=== PATIENT | female | born 1990 | race African-American/Black ===

== ENCOUNTER 2017-01-16 16:14 | Emergency (ER) | payer OTHER, MEDICAID ==
[2017-01-16] MEDS ORDERED: NORMAL SALINE 1000 ML 1,000 ML IV ONE (17:44)
[2017-01-16] MEDS ORDERED: KETOROLAC TROMETHAMINE INJ/PF 30 MG/1 ML SDV IV ONE (17:45)
--- NOTE | 2017-01-16 17:47 | ER Document Report ---
ED Medical Screen (RME) - General Chief Complaint: Headache Stated Complaint: HEADACHE,POSSIBLE PALPITATIONS Time Seen by Provider: 01/16/17 17:44 Mode of Arrival: Ambulatory Information source: Patient TRAVEL OUTSIDE OF THE [place] IN LAST 30 DAYS: No - HPI Patient complains to provider of: GALVAN; palpitations Onset: Other - Pt .with h/o migraine GALVAN with onset of typical GALVAN earlier today; also felt her heart beating rapidly-- went to but could not be seen - Related Data Allergies/Adverse Reactions: No Known Allergies Allergy (Verified 01/16/17 16:20) Past Medical History - Past Medical History Cardiac Medical History: Reports: Hx Hypertension Renal/ Medical History: Denies: Hx Peritoneal Dialysis - Immunizations Immunizations up to date: Yes Hx Diphtheria, Pertussis, Tetanus Vaccination: Yes Physical Exam - Vital signs Vitals: Temp Pulse Resp BP Pulse Ox 98.4 F 92 20 152/103 H 99 01/16/17 16:21 01/16/17 16:21 01/16/17 16:21 01/16/17 16:21 01/16/17 16:21 Course - Vital Signs Vital signs: Temp Pulse Resp BP Pulse Ox 98.4 F 92 20 152/103 H 99 01/16/17 16:21 01/16/17 16:21 01/16/17 16:21 01/16/17 16:21 01/16/17 16:21
[2017-01-16 18:32] LABS: ABSOLUTE EOSINOPHILS # (AUTO) 0.4 10^3/uL (0.0-0.6); ABSOLUTE LYMPHOCYTES (AUTO) 2.4 10^3/uL (0.5-4.7); ABSOLUTE MONOCYTES (AUTO) 0.5 10^3/uL (0.1-1.4); ABSOLUTE NEUT (AUTO) 1.9 10^3/uL (1.7-8.2); BASOPHILS % (AUTO) 0.6 % (0-2); EOSINOPHILS % (AUTO) 8.3 % (0-6); HEMOGLOBIN 13.4 g/dL (12.0-15.5); HGB HCT DIFFERENCE 0.2; LYMPHOCYTES % (AUTO) 45.8 % (13-45); MEAN CORPUSCULAR HEMOGLOBIN 27.9 pg (27.0-33.4); MEAN CORPUSCULAR HGB CONC 33.6 g/dL (32.0-36.0); MEAN CORPUSCULAR VOLUME 83 fl (80-97); MONOCYTES % (AUTO) 9.8 % (3-13); RED BLOOD COUNT 4.82 10^6/uL (3.72-5.28); RED CELL DISTRIBUTION WIDTH 12.4 % (11.5-14.0); SEGMENTED NEUTROPHILS % (AUTO) 35.5 % (42-78); WHITE BLOOD COUNT 5.3 10^3/uL (4.0-10.5)
[2017-01-16 18:56] LABS: ANION GAP 11 (5-19); BLOOD UREA NITROGEN 9 mg/dL (7-20); CALCIUM 9.7 mg/dL (8.4-10.2); CARBON DIOXIDE 28 mmol/L (22-30); CHLORIDE 103 mmol/L (98-107); GLUCOSE 67 mg/dL (75-110); POTASSIUM 4.1 mmol/L (3.6-5.0); SODIUM 141.7 mmol/L (137-145)
--- NOTE | 2017-01-16 19:15 | ER Document Report ---
ED General - General Chief Complaint: Headache Stated Complaint: HEADACHE,POSSIBLE PALPITATIONS Time Seen by Provider: 01/16/17 17:44 Mode of Arrival: Ambulatory Notes: Patient is a 26-year-old female who presents with multiple complaints, her primary concern is that she had an episode of palpitations earlier today. Reports that the symptoms have now resolved. Reports a history of similar symptoms in the past but has never had this evaluated by her primary care doctor or wheel polisher. Denies any associated chest pain, syncope or shortness of breath. Patient also reports that she had a headache earlier which is described as a mild, bifrontal headache that was throbbing in nature. States was gradual in onset and similar to prior headaches that she has had. Nothing improves or worsens the headache but notes that it is now resolved after receiving IV Toradol in triage. Patient also notes that she has had chronic fatigue for the past 2-3 months but denies that this is the reason for her visit to the emergency department today. TRAVEL OUTSIDE OF THE [place] IN LAST 30 DAYS: No - Related Data Allergies/Adverse Reactions: No Known Allergies Allergy (Verified 01/16/17 16:20) Past Medical History - General Information source: Patient - Social History Smoking Status: Never Smoker Chew tobacco use (# tins/day): No Frequency of alcohol use: None Drug Abuse: None Lives with: Spouse/Significant other Family History: CAD, Hypertension Patient has suicidal ideation: No Patient has homicidal ideation: No - Past Medical History Cardiac Medical History: Reports: Hx Hypertension Renal/ Medical History: Denies: Hx Peritoneal Dialysis Surgical Hx: Negative - Immunizations Immunizations up to date: Yes Hx Diphtheria, Pertussis, Tetanus Vaccination: Yes Review of Systems - Review of Systems Notes: Constitutional: Negative for fever. HENT: Negative for sore throat. Eyes: Negative for visual changes. Cardiovascular: Negative for chest pain. Positive for palpitations Respiratory: Negative for shortness of breath. Gastrointestinal: Negative for abdominal pain, vomiting or diarrhea. Genitourinary: Negative for dysuria. Musculoskeletal: Negative for back pain. Skin: Negative for rash. Neurological: Positive for headache now resolved, negative for weakness or numbness. 10 point ROS negative except as marked above and in HPI. Physical Exam - Vital signs Vitals: Temp Pulse Resp BP Pulse Ox 98.4 F 92 20 152/103 H 99 01/16/17 16:21 01/16/17 16:21 01/16/17 16:21 01/16/17 16:21 01/16/17 16:21 Interpretation: Hypertensive Notes: PHYSICAL EXAMINATION: GENERAL: Well-appearing, well-nourished and in no acute distress. HEAD: Atraumatic, normocephalic. EYES: Pupils equal round and reactive to light, extraocular movements intact, sclera anicteric, conjunctiva are normal. ENT: nares patent, oropharynx clear without exudates. Moist mucous membranes. NECK: Normal range of motion, supple without lymphadenopathy LUNGS: Breath sounds clear to auscultation bilaterally and equal. No wheezes rales or rhonchi. HEART: Regular rate and rhythm without murmurs ABDOMEN: Soft, nontender, normoactive bowel sounds. No guarding, no rebound. No masses appreciated. EXTREMITIES: Normal range of motion, no pitting or edema. No cyanosis. NEUROLOGICAL: No focal neurological deficits. Moves all extremities spontaneously and on command. PSYCH: Normal mood, normal affect. SKIN: Warm, Dry, normal turgor, no rashes or lesions noted. Course - Re-evaluation Re-evalutation: 01/16/17 19:06 Patient presents with palpitations but is in no acute distress. Vitals within normal limits at time of arrival. EKG unremarkable with a normal sinus rhythm. Laboratories are unremarkable. Patient denies any chest pain, shortness of breath, or vomiting. At this time based on exam and history do not suspect a new onset arrhythmia, ACS, acute pulmonary embolus, aortic dissection. Patient also complained of a headache which is now resolved at time of assessment receiving IV fluids and Toradol. Headache appears to be consistent with tension versus migrainous type headache. Headache was not maximal in onset, patient has no focal neurologic deficits, no nuchal rigidity, vital signs within normal limits, no papilledema, and patient is overall well in appearance. Based on clinical history and examination I do not suspect an acute subarachnoid hemorrhage, dural venous sinus thrombosis, acute meningitis, or intercranial mass. Given my low clinical suspicion for any acute life- threatening etiology, I do not feel advanced neuro imaging or laboratory testing is indicated at this time. At this time will discharge with return precautions and follow-up recommendations. Verbal discharge instructions given a the bedside and opportunity for questions given. Medication warnings reviewed. Patient is in agreement with this plan and has verbalized understanding of return precautions and the need for primary care follow-up in the next 24-72 hours. - Vital Signs Vital signs: Temp Pulse Resp BP Pulse Ox 98.1 F 71 16 132/90 H 100 01/16/17 19:21 01/16/17 19:21 01/16/17 19:21 01/16/17 19:21 01/16/17 19:21 - Laboratory Result Diagrams: 01/16/17 17:55 01/16/17 17:55 Laboratory results interpreted by me: 01/16/17 01/16/17 17:55 17:55 Seg Neutrophils % 35.5 L Lymphocytes % 45.8 H Eosinophils % 8.3 H Glucose 67 L - EKG Interpretation by Me Additional EKG results interpreted by me: 01/16/17 19:06 Normal sinus rhythm. Rate 93. No ST elevations or depressions. QTC is 428. Discharge - Discharge Clinical Impression: Palpitations Headache Qualifiers: Headache type: unspecified Headache chronicity pattern: acute headache Intractability: not intractable Qualified Code(s): R51 - Headache Fatigue Qualifiers: Fatigue type: unspecified Qualified Code(s): R53.83 - Other fatigue Condition: Good Disposition: HOME, SELF-CARE Additional Instructions: Please follow-up with your primary care doctor or a wheel polisher regarding your palpitations. Return if you develop chest pain, shortness of breath, pass out, or have any other symptoms that are worrisome to you.
[2017-01-16 19:22] VITALS: BP 132/90
--- NOTE | 2017-01-16 19:55 | EKG REPORT ---
SEVERITY:- NORMAL ECG - SINUS RHYTHM : Confirmed by: Adama Kim MD 16-Jan-2017 19:54:34
== END 2017-01-16 19:22 | disposition home or self-care (01) ==
LOC: ER 16:14
DX: R00.2 Palpitations (principal); I10 Essential (primary) hypertension; R51 Headache; R53.82 Chronic fatigue, unspecified; Z82.49 Family history of ischemic heart disease and other diseases of the circulatory system
CPT/HCPCS: 93005; 99285; 96361; 96374; 36415; 84703; 85025; 80048; 93010; J1885; J7030

== ENCOUNTER 2017-01-19 18:27 | Emergency (ER) | payer OTHER, MEDICAID ==
--- NOTE | 2017-01-19 19:12 | ER Document Report ---
ED Medical Screen (RME) - General Chief Complaint: Chest Pain Stated Complaint: CHEST PAIN,LEFT ARM TINGLING Time Seen by Provider: 01/19/17 19:06 Information source: Patient Notes: 26-year-old female who presents today with some left chest pain radiating down the left arm. She denies any nausea, vomiting, shortness of breath, calf pain, leg swelling, or fevers. Patient states 1 year ago she was diagnosed with high blood pressure after having a child but has not been on blood pressure medications for the last 9 months. Patient has a family history of a cardiomyopathy. Patient states she did have some palpitations and was seen and evaluated recently here in the emergency department for that complaint. TRAVEL OUTSIDE OF THE [place] IN LAST 30 DAYS: No - Related Data Allergies/Adverse Reactions: No Known Allergies Allergy (Verified 01/19/17 18:31) Past Medical History - Social History Frequency of alcohol use: None Drug Abuse: None - Past Medical History Cardiac Medical History: Reports: Hx Hypertension Renal/ Medical History: Denies: Hx Peritoneal Dialysis - Immunizations Immunizations up to date: Yes Hx Diphtheria, Pertussis, Tetanus Vaccination: Yes Physical Exam - Vital signs Vitals: Temp Pulse Resp BP Pulse Ox 98.8 F 94 14 160/101 H 100 01/19/17 18:31 01/19/17 18:31 01/19/17 18:31 01/19/17 18:31 01/19/17 18:31 Course - Vital Signs Vital signs: Temp Pulse Resp BP Pulse Ox 98.8 F 94 14 160/101 H 100 01/19/17 18:31 01/19/17 18:31 01/19/17 18:31 01/19/17 18:31 01/19/17 18:31
[2017-01-19 19:50] LABS: ABSOLUTE EOSINOPHILS # (AUTO) 0.4 10^3/uL (0.0-0.6); ABSOLUTE LYMPHOCYTES (AUTO) 2.1 10^3/uL (0.5-4.7); ABSOLUTE MONOCYTES (AUTO) 0.4 10^3/uL (0.1-1.4); ABSOLUTE NEUT (AUTO) 2.5 10^3/uL (1.7-8.2); BASOPHILS % (AUTO) 0.4 % (0-2); EOSINOPHILS % (AUTO) 6.9 % (0-6); HEMATOCRIT 39.3 % (36.0-47.0); HEMOGLOBIN 13.1 g/dL (12.0-15.5); LYMPHOCYTES % (AUTO) 38.3 % (13-45); MEAN CORPUSCULAR HEMOGLOBIN 27.6 pg (27.0-33.4); MEAN CORPUSCULAR HGB CONC 33.3 g/dL (32.0-36.0); MEAN CORPUSCULAR VOLUME 83 fl (80-97); MONOCYTES % (AUTO) 7.1 % (3-13); RED BLOOD COUNT 4.74 10^6/uL (3.72-5.28); RED CELL DISTRIBUTION WIDTH 12.4 % (11.5-14.0); SEGMENTED NEUTROPHILS % (AUTO) 47.3 % (42-78); WHITE BLOOD COUNT 5.4 10^3/uL (4.0-10.5)
--- NOTE | 2017-01-19 19:50 | RADIOLOGY REPORT (SQ) ---
EXAM DESCRIPTION: CHEST PA/LAT COMPLETED DATE/TIME: 01/19/2017 7:42 pm REASON FOR STUDY: chest pain COMPARISON: October 2012 EXAM PARAMETERS: NUMBER OF VIEWS: two views TECHNIQUE: Digital Frontal and Lateral radiographic views of the chest acquired. RADIATION DOSE: NA LIMITATIONS: none FINDINGS: LUNGS AND PLEURA: No opacities, masses or pneumothorax. No pleural effusion. MEDIASTINUM AND HILAR STRUCTURES: No masses or contour abnormalities. HEART AND VASCULAR STRUCTURES: Heart normal size. No evidence for failure. BONES: No acute findings. HARDWARE: None in the chest. OTHER: No other significant finding. IMPRESSION: NO SIGNIFICANT RADIOGRAPHIC FINDING IN THE CHEST. TECHNICAL DOCUMENTATION: JOB ID: [id number] [employer]- All Rights Reserved
--- NOTE | 2017-01-19 19:50 | EKG REPORT ---
SEVERITY:- NORMAL ECG - SINUS RHYTHM : Confirmed by: Wayne Leyva 19-Jan-2017 19:50:04
[2017-01-19 20:03] LABS: ANION GAP 13 (5-19); BLOOD UREA NITROGEN 8 mg/dL (7-20); CALCIUM 9.7 mg/dL (8.4-10.2); CARBON DIOXIDE 27 mmol/L (22-30); CHLORIDE 100 mmol/L (98-107); GLUCOSE 87 mg/dL (75-110); POTASSIUM 3.7 mmol/L (3.6-5.0); SODIUM 139.5 mmol/L (137-145)
--- NOTE | 2017-01-19 20:42 | ER Document Report ---
ED Cardiac - General Chief Complaint: Chest Pain Stated Complaint: CHEST PAIN,LEFT ARM TINGLING Time Seen by Provider: 01/19/17 19:06 Mode of Arrival: Ambulatory Information source: Patient TRAVEL OUTSIDE OF THE [place] IN LAST 30 DAYS: No - HPI Patient complains to provider of: Chest pain Was the onset of pain: Sudden Is the pain a: New problem Chest pain location: Substernal Quality of pain: Achy Chest pain radiation location: Left arm Severity now: Mild Severity at worst: Moderate Pain level currently: 1 Chest pain precipitating factors: Mental Exertion/Stress Cardiac risk factors: None Associated symptoms: None Exacerbated by: Denies Relieved by: Nothing Similar symptoms previously: No Recently seen / treated by doctor: Yes Notes: patient is a 26-year-old female with no past medical history who presents to the emergency room complaining of left-sided chest pain with tingling sensation down the left arm that started shortly after having an unpleasant conversation with her on the phone, she denies any shortness of breath, no cough, cold or congestion, she does report some sinus drainage over the past few weeks , no fever or chills, no nausea, vomiting or diarrhea, no history of similar symptoms previously, although patient does report she was seen in the ER recently for palpitations - Related Data Allergies/Adverse Reactions: No Known Allergies Allergy (Verified 01/19/17 18:31) Past Medical History - General Information source: Patient - Social History Smoking Status: Never Smoker Frequency of alcohol use: None Drug Abuse: None Family History: CAD, Hypertension Patient has suicidal ideation: No Patient has homicidal ideation: No - Past Medical History Cardiac Medical History: Reports: Hx Hypertension Renal/ Medical History: Denies: Hx Peritoneal Dialysis - Immunizations Immunizations up to date: Yes Hx Diphtheria, Pertussis, Tetanus Vaccination: Yes Review of Systems - Review of Systems Constitutional: No symptoms reported EENT: No symptoms reported Cardiovascular: See HPI Respiratory: No symptoms reported Gastrointestinal: No symptoms reported Genitourinary: No symptoms reported Female Genitourinary: No symptoms reported Musculoskeletal: No symptoms reported Skin: No symptoms reported Hematologic/Lymphatic: No symptoms reported Neurological/Psychological: No symptoms reported -: Yes All other systems reviewed and negative Physical Exam - Vital signs Vitals: Temp Pulse Resp BP Pulse Ox 98.8 F 94 14 160/101 H 100 01/19/17 18:31 01/19/17 18:31 01/19/17 18:31 01/19/17 18:31 01/19/17 18:31 Interpretation: Normal - General General appearance: Appears well, Alert - HEENT Head: Normocephalic, Atraumatic Eyes: Normal Pupils: PERRL - Respiratory Respiratory status: No respiratory distress Chest status: Tender - Tender to palpate in the left anterior chest wall Breath sounds: Normal Chest palpation: Normal - Cardiovascular Rhythm: Regular Heart sounds: Normal auscultation Murmur: No - Abdominal Inspection: Normal Distension: No distension Bowel sounds: Normal Tenderness: Nontender Organomegaly: No organomegaly - Back Back: Normal, Nontender - Extremities General upper extremity: Normal inspection, Nontender, Normal color, Normal ROM , Normal temperature General lower extremity: Normal inspection, Nontender, Normal color, Normal ROM , Normal temperature, Normal weight bearing. No: Mala's sign - Neurological Neuro grossly intact: Yes Cognition: Normal Orientation: AAOx4 Slim Coma Scale Eye Opening: Spontaneous Slim Coma Scale Verbal: Oriented Slim Coma Scale Motor: Obeys Commands [place] Coma Scale Total: 15 Speech: Normal Motor strength normal: LUE, RUE, LLE, RLE Sensory: Normal - Psychological Associated symptoms: Normal affect, Normal mood - Skin Skin Temperature: Warm Skin Moisture: Dry Skin Color: Normal Course - Re-evaluation Re-evalutation: 01/19/17 22:13 Patient with unremarkable lab and imaging studies, symptoms started after having an unpleasant conversation with her on the phone, symptoms are more likely consistent with anxiety related to this, since patient has no risk factors for heart disease and had an unremarkable workup in the emergency room, she was advised of these findings and advised to follow-up with a primary care provider or return if symptoms worsen, patient acknowledges understanding and agreement with this plan - Vital Signs Vital signs: Temp Pulse Resp BP Pulse Ox 98.8 F 94 26 H 121/102 H 100 01/19/17 18:31 01/19/17 18:31 01/19/17 20:36 01/19/17 20:36 01/19/17 20:36 - Laboratory Result Diagrams: 01/19/17 19:35 01/19/17 19:35 Laboratory results interpreted by me: 01/19/17 19:35 Eosinophils % 6.9 H - Diagnostic Test Radiology reviewed: Image reviewed, Reports reviewed - EKG Interpretation by Me EKG shows normal: Sinus rhythm Rate: Normal Rhythm: NSR Discharge - Discharge Clinical Impression: Chest wall pain Condition: Stable Disposition: HOME, SELF-CARE Instructions: Chest Wall Pain ([facility]), Anxiety ([facility]) Additional Instructions: Follow up with your primary care provider in one to 2 days. Return to the emergency room immediately if symptoms worsen or any additional concerns.
[2017-01-19 21:00] VITALS: BP 121/102
[2017-01-19 21:25] LABS: FREE T3 4.4 pg/mL (2.77-5.27)
[2017-01-19 21:39] LABS: THYROID STIMULATING HORMONE 1.39 uIU/mL (0.47-4.68)
== END 2017-01-19 21:01 | disposition home or self-care (01) ==
LOC: ER 18:27
DX: R07.89 Other chest pain (principal); R20.2 Paresthesia of skin; J34.89 Other specified disorders of nose and nasal sinuses; I10 Essential (primary) hypertension; Z82.49 Family history of ischemic heart disease and other diseases of the circulatory system
CPT/HCPCS: 36415; 71020; 80048; 84439; 84443; 84481; 84484; 85025; 93005; 93010; 99285

== ENCOUNTER 2017-08-09 16:51 | Emergency (ER) | payer MEDICAID, OTHER ==
[2017-08-09 17:39] VITALS: BP 126/79
[2017-08-09] MEDS ORDERED: NORMAL SALINE 1000 ML 2,000 ML IV ONE (18:39)
--- NOTE | 2017-08-09 18:40 | ER Document Report ---
ED GI/ - General Chief Complaint: Nausea/Vomiting Stated Complaint: VOMITING Time Seen by Provider: 08/09/17 18:35 Mode of Arrival: Ambulatory Information source: Patient Notes: 26 yo female sent to ER for IV fluids because they said she was dehydrated. They checked the -FHT and they were OK. Went to be checked there because of nausea, vomiting 2-3 and 2-4 3 times, diarrhea 3 times today. She is lightheaded body feeling weak today. No abd. pain or vaginal bleeding. TRAVEL OUTSIDE OF THE [place] IN LAST 30 DAYS: No - Related Data Allergies/Adverse Reactions: No Known Allergies Allergy (Verified 08/09/17 17:07) Past Medical History - General Information source: Patient - Social History Smoking Status: Never Smoker Frequency of alcohol use: None Drug Abuse: None Lives with: Family Family History: CAD, Hypertension - Medical History Notes: - Past Medical History Cardiac Medical History: Reports: Hx Hypertension Renal/ Medical History: Denies: Hx Peritoneal Dialysis Surgical Hx: Negative - Immunizations Immunizations up to date: Yes Hx Diphtheria, Pertussis, Tetanus Vaccination: Yes Review of Systems - Review of Systems Constitutional: No symptoms reported EENT: No symptoms reported Cardiovascular: No symptoms reported Respiratory: No symptoms reported Gastrointestinal: See HPI Genitourinary: No symptoms reported Female Genitourinary: No symptoms reported Musculoskeletal: No symptoms reported Skin: No symptoms reported Hematologic/Lymphatic: No symptoms reported Neurological/Psychological: See HPI Physical Exam - Vital signs Vitals: Temp Pulse Resp BP Pulse Ox 98.5 F 101 H 20 126/79 H 98 08/09/17 17:38 08/09/17 17:38 08/09/17 17:38 08/09/17 17:38 08/09/17 17:38 Interpretation: Normal - General General appearance: Appears well, Alert In distress: None - HEENT Head: Normocephalic, Atraumatic Eyes: Normal Conjunctiva: Normal Pupils: PERRL Mouth/Lips: Normal Mucous membranes: Normal Neck: Supple. No: Lymphadenopathy - Respiratory Respiratory status: No respiratory distress Chest status: Nontender Breath sounds: Normal Chest palpation: Normal - Cardiovascular Rhythm: Regular Heart sounds: Normal auscultation Murmur: No - Abdominal Inspection: Normal Distension: No distension Bowel sounds: Normal Tenderness: Nontender Organomegaly: Other - fundus just above pubis Notes: FHT 145 at pubis - Back Back: Normal, Nontender. No: CVA tenderness - Extremities General upper extremity: Normal inspection, Nontender, Normal color, Normal ROM , Normal temperature General lower extremity: Normal inspection, Nontender, Normal color, Normal ROM , Normal temperature, Normal weight bearing. No: Mala's sign - Neurological Neuro grossly intact: Yes Cognition: Normal Orientation: AAOx4 Slim Coma Scale Eye Opening: Spontaneous [place] Coma Scale Verbal: Oriented Slim Coma Scale Motor: Obeys Commands [place] Coma Scale Total: 15 Speech: Normal Motor strength normal: LUE, RUE, LLE, RLE Sensory: Normal - Psychological Associated symptoms: Normal affect, Normal mood - Skin Skin Temperature: Warm Skin Moisture: Dry Skin Color: Normal Skin irregularity: negative: Rash Course - Re-evaluation Re-evalutation: 08/09/17 20:48 eating and drinking PO's, IV infusing. - Vital Signs Vital signs: Temp Pulse Resp BP Pulse Ox 98.5 F 101 H 20 126/79 H 98 08/09/17 17:38 08/09/17 17:38 08/09/17 17:38 08/09/17 17:38 08/09/17 17:38 - Laboratory Result Diagrams: 08/09/17 20:05 08/09/17 20:05 Laboratory results interpreted by me: 08/09/17 08/09/17 08/09/17 20:05 20:05 20:05 Hct 34.7 L Sodium 135.3 L Alkaline Phosphatase < 20 L Urine Urobilinogen 4.0 H Ur Leukocyte Esterase TRACE H - Transfer of Care Care transferred to following provider: Lin PALENCIA at 2100 Discharge - Discharge Clinical Impression: 14 weeks gestation of , vomiting diarrhea, Dehydration Condition: Good Disposition: HOME, SELF-CARE Instructions: Dehydration ([facility]), Diarrhea, Nonspecific ([facility]), Intravenous (IV) Fluids ([facility]), Nausea or Vomiting, Nonspecific ([facility]), ([facility]) Additional Instructions: continue to hydrate with fluids drink at least 2 liters of water daily to er if any recurring symptoms, abd pain or vaginal bleeding Forms: Return to Work
[2017-08-09 20:14] LABS: ABSOLUTE EOSINOPHILS # (AUTO) 0.1 10^3/uL (0.0-0.6); ABSOLUTE LYMPHOCYTES (AUTO) 1.8 10^3/uL (0.5-4.7); ABSOLUTE MONOCYTES (AUTO) 0.6 10^3/uL (0.1-1.4); ABSOLUTE NEUT (AUTO) 3.6 10^3/uL (1.7-8.2); BASOPHILS % (AUTO) 0.2 % (0-2); EOSINOPHILS % (AUTO) 1.5 % (0-6); HEMATOCRIT 34.7 % (36.0-47.0); LYMPHOCYTES % (AUTO) 29.4 % (13-45); MEAN CORPUSCULAR HEMOGLOBIN 29.1 pg (27.0-33.4); MEAN CORPUSCULAR HGB CONC 34.7 g/dL (32.0-36.0); MEAN CORPUSCULAR VOLUME 84 fl (80-97); MONOCYTES % (AUTO) 9.9 % (3-13); PLATELET COUNT 235 10^3/uL (150-450); RED BLOOD COUNT 4.14 10^6/uL (3.72-5.28); RED CELL DISTRIBUTION WIDTH 13.7 % (11.5-14.0); TOTAL CELLS COUNTED % (AUTO) 100 %
[2017-08-09 20:15] LABS: APPEARANCE,URINE SLIGHTLY-CLOUDY; BILIRUBIN,URINE NEGATIVE (NEGATIVE); COLOR,URINE YELLOW; GLUCOSE, URINE NEGATIVE (NEGATIVE); KETONES,URINE NEGATIVE (NEGATIVE); LEUKOCYTE ESTERASE,URINE TRACE (NEGATIVE); NITRITE,URINE NEGATIVE (NEGATIVE); PROTEIN,URINE NEGATIVE (NEGATIVE); URINE SPECIFIC GRAVITY 1.031
[2017-08-09 20:43] LABS: ALANINE AMINOTRANSFERASE 17 U/L (9-52); ALBUMIN 4.1 g/dL (3.5-5.0); ANION GAP 8 (5-19); ASPARTATE AMINO TRANSFERASE 22 U/L (14-36); BILIRUBIN,DIRECT 0.4 mg/dL (0.0-0.4); BILIRUBIN,TOTAL 0.4 mg/dL (0.2-1.3); BLOOD UREA NITROGEN 8 mg/dL (7-20); CALCIUM 9.9 mg/dL (8.4-10.2); CARBON DIOXIDE 26 mmol/L (22-30); CHLORIDE 101 mmol/L (98-107); GLUCOSE 81 mg/dL (75-110); POTASSIUM 3.7 mmol/L (3.6-5.0); SODIUM 135.3 mmol/L (137-145); TOTAL PROTEIN 6.9 g/dL (6.3-8.2)
[2017-08-09 20:46] LABS: ALKALINE PHOSPHATASE < 20 U/L (38-126)
== END 2017-08-09 21:55 | disposition home or self-care (01) ==
LOC: ER 16:51
DX: O21.9 Vomiting of pregnancy, unspecified (principal); R19.7 Diarrhea, unspecified; E86.0 Dehydration; Z3A.14 14 weeks gestation of pregnancy
CPT/HCPCS: 99284; 96360; 36415; 85025; 80053; 81001; J7030

== ENCOUNTER → 2018-01-03 | Outpatient (CLI) | payer MEDICAID ==
--- NOTE | 2018-01-04 11:20 | Non Stress Test Report ---
Non Stress Test Datetime Report Generated by CPN: 01/04/2018 11:19 INDICATION Indication for Study: Ordered by Provider Indication for Study (NST) Other: repeat from the office VITAL SIGNS Temperature - NST: 98.0 Pulse - NST: 78 RESP - NST: 14 NBPSYS NST: 111 NBPDIA NST: 65 MONITORING Monitor Explained: Monitor Explained; Test Explained; Patient Verbalized Understanding Time on Monitor: 01/03/2018 17:00 Time off Monitor: 01/03/2018 17:20 NST Duration: 20 NST INTERVENTIONS NST Interventions: Reposition Patient Physician Notified NST: C Johnston CNM BABY A: [id number] BABY A Movement : Present Contraction Frequency : 0 FHR Baseline : 125 Accelerations : 15X15 Decelerations : None Variability : Moderate 6-25bpm NST Review: Meets Criteria for Reactive NST NST Review and Verified By : Sarah Ingram RN NST Results: Reactive NST REPORT Report Trigger: Send Report
== END ==
LOC: LC 16:37
PROVIDERS: ATTEND Student in an Organized Health Care Education/Training Program
PROC: 4A1HXCZ Monitoring of Products of Conception, Cardiac Rate, External Approach (ICD-10-PCS; principal; 2018-01-03)
DX: Z34.93 Encounter for supervision of normal pregnancy, unspecified, third trimester (principal)
CPT/HCPCS: 59025

== ENCOUNTER 2018-01-17 18:27 | Inpatient (IN) | payer MEDICAID ==
[2018-01-17 18:49] LABS: APPEARANCE,URINE SLIGHTLY-CLOUDY; BILIRUBIN,URINE NEGATIVE (NEGATIVE); COLOR,URINE YELLOW; GLUCOSE, URINE 50 mg/dL (NEGATIVE); KETONES,URINE NEGATIVE (NEGATIVE); LEUKOCYTE ESTERASE,URINE NEGATIVE (NEGATIVE); NITRITE,URINE NEGATIVE (NEGATIVE); PROTEIN,URINE NEGATIVE (NEGATIVE); URINE SPECIFIC GRAVITY 1.014; UROBILINOGEN,URINE NEGATIVE mg/dL (<2.0)
[2018-01-17 19:03] LABS: ABSOLUTE BASOPHILS # (AUTO) 0.1 10^3/uL (0.0-0.2); ABSOLUTE EOSINOPHILS # (AUTO) 0.1 10^3/uL (0.0-0.6); ABSOLUTE LYMPHOCYTES (AUTO) 1.9 10^3/uL (0.5-4.7); ABSOLUTE MONOCYTES (AUTO) 0.9 10^3/uL (0.1-1.4); ABSOLUTE NEUT (AUTO) 5.9 10^3/uL (1.7-8.2); BASOPHILS % (AUTO) 0.7 % (0-2); EOSINOPHILS % (AUTO) 1.6 % (0-6); HEMATOCRIT 27.7 % (36.0-47.0); HEMOGLOBIN 9.3 g/dL (12.0-15.5); LYMPHOCYTES % (AUTO) 21.2 % (13-45); MEAN CORPUSCULAR HGB CONC 33.7 g/dL (32.0-36.0); MEAN CORPUSCULAR VOLUME 80 fl (80-97); MONOCYTES % (AUTO) 9.6 % (3-13); PLATELET COUNT 194 10^3/uL (150-450); RED BLOOD COUNT 3.47 10^6/uL (3.72-5.28); RED CELL DISTRIBUTION WIDTH 13.4 % (11.5-14.0); SEGMENTED NEUTROPHILS % (AUTO) 66.9 % (42-78); TOTAL CELLS COUNTED % (AUTO) 100 %; WHITE BLOOD COUNT 8.9 10^3/uL (4.0-10.5)
[2018-01-17 19:05] LABS: URINE AMPHETAMINES SCREEN NEGATIVE; URINE BARBITURATES SCREEN NEGATIVE; URINE BENZODIAZEPINES SCREEN NEGATIVE; URINE COCAINE SCREEN NEGATIVE; URINE MARIJUANA (THC) SCREEN NEGATIVE; URINE METHADONE SCREEN NEGATIVE; URINE PHENCYCLIDINE SCREEN NEGATIVE
[2018-01-17] MEDS ORDERED: OXYTOCIN/NORMAL SALINE 20 UNIT/1,000 ML RTUINJ IV PRN (19:48)
[2018-01-17] MEDS ORDERED: PENICILLIN G POTASSIUM 5,000,000 UNIT in DEXTROSE 5%-WATER 100 ML IV ONE (19:50)
[2018-01-17] MEDS ORDERED: RINGERS SOLUTION,LACTATED 1,000 ML IV PRN (19:50)
[2018-01-17] MEDS ORDERED: OXYTOCIN/NORMAL SALINE 20 UNIT/1,000 ML RTUINJ ONE (19:54)
[2018-01-17] MEDS ORDERED: PENICILLIN G-K 5 MILLION UNIT VIAL ONE (19:54)
--- NOTE | 2018-01-17 20:29 | Admission Physical ---
Datetime Report Generated by CPN: 01/17/2018 20:29 CURRENT ADMISSION Chief Complaint: Scheduled Induction of Labor Indication for Induction: Gestational HTN; PreEclampsia; Maternal Diabetes Admit Impression : Term, Intrauterine ; No Active Labor; Induction of Labor Admit Plan: Admit to Unit; Initiate Labor Induction Protocol ALLERGIES Medication Allergies: No Medication Allergies: No Known Allergies (08/09/2017) Latex: No Latex Allergies OBSTETRICAL HISTORY EDC: 02/06/2018 00:00 : 4 Para: 2 Term: 2 : 0 SAB: 0 IAB: 1 Ectopic: 0 Livin Cesareans: 0 VBACs: 0 Multiple Births: 0 Gestational Diabetes: Yes Rh Sensitization: No Incompetent Cervix: No SAAD: No Infertility: No ART Treatment: No Uterine Anomaly: No IUGR: No Hx Previous C/S: No Macrosomia: No Hx Loss/Stillborn: No PIH: No Hx : No Placenta Previa/Abruption: No Depression/PP Depression: No PTL/PROM: No Post Hemorrhage: No Obstetrical History Comments: H/O GDM- METFORMIN H/O GHTN SEE RECORDS Alcohol: Yes Marijuana : No Cocaine: No Other Illicit Drugs: No Cigarettes: Never Smoker. [id number] MEDICAL HISTORY Diabetes: Yes Diabetes Type: Gestational Diabetes Blood Transfusion: No Pulmonary Disease (Asthma, TB): No Breast Disease: No Hypertension: No Surgical Oncologist Surgery: No Heart Disease: No Hosp/Surgery: Yes Autoimmune Disorder: No Anesthetic Complications: No Kidney Disease: No Abnormal Pap Smear: No Neuro/Epilepsy: No Psychiatric Disorders: No Other Medical Diseases: No Hepatitis/Liver Disease: No Significant Family History: No Varicosities/Phlebitis: No Trauma/Violence : No Thyroid Dysfunction: No Medical History Comments: childbirth anemia INFECTIOUS HISTORY Gonorrhea: No Genital Herpes: No Chlamydia: No Tuberculosis: No Syphilis: No Hepatitis: No HIV/AIDS Exposure: No Rash or Viral Illness: No HPV: No PHYSICAL EXAM General: Normal HEENT: Normal Neurologic: Normal Thyroid: Normal Heart: Normal Lungs: Normal Breast: Normal Back: Normal Abdomen: Normal Genitourinary Exam: Normal Extremities: Normal DTRs: Normal Pelvic Type: Adequate Vital Signs: Reviewed VAGINAL EXAM Dilatation: 2 Effacement: 60 Station: -2 MEMBRANES Pooling: Negative Membranes: Intact FETUS A EGA: 37.1 Monitoring: External US FHR- Baseline: 130 Variability: Moderate 6-25bpm Accelerations: 15X15 Decelerations: None FHR Category: Category I Estimated Weight (gm): 3400 Presentation: Vertex PLANS FOR LABOR AND DELIVERY Pain Management: Natural Feeding Preference: Breast Benefit of Breast Feed Discussed: Yes Circumcision: Yes INFORMED CONSENT Signature: with User ID: [email or web address]
[2018-01-18] MEDS ORDERED: PENICILLIN G-K 5 MILLION UNIT VIAL ONE ×4 (00:10→12:51)
[2018-01-18] MEDS: PENICILLIN G POTASSIUM 2,500,000 UNIT in DEXTROSE 5%-WATER 50 ML IV SCH ×6 (00:19→21:26)
[2018-01-18 02:29] LABS: ANION GAP 11 (5-19)
[2018-01-18 02:30] LABS: ALANINE AMINOTRANSFERASE 17 U/L (9-52); ALBUMIN 3.3 g/dL (3.5-5.0); ALKALINE PHOSPHATASE 51 U/L (38-126); ASPARTATE AMINO TRANSFERASE 19 U/L (14-36); BILIRUBIN,DIRECT 0.2 mg/dL (0.0-0.4); BILIRUBIN,TOTAL 0.3 mg/dL (0.2-1.3); BLOOD UREA NITROGEN 8 mg/dL (7-20); CALCIUM 9.8 mg/dL (8.4-10.2); CARBON DIOXIDE 21 mmol/L (22-30); CHLORIDE 109 mmol/L (98-107); GLUCOSE 99 mg/dL (75-110); POTASSIUM 3.9 mmol/L (3.6-5.0); SODIUM 140.6 mmol/L (137-145); TOTAL PROTEIN 6.2 g/dL (6.3-8.2); URIC ACID 2.9 mg/dL (2.5-6.2)
[2018-01-18] MEDS ORDERED: ACETAMINOPHEN 325 MG TABLET ONE (04:44)
[2018-01-18] MEDS ORDERED: MISOPROSTOL 0.2 MG TABLET ONE (06:34)
[2018-01-18] MEDS ORDERED: LIDOCAINE 1% INJ-PF (10 MG/ML) 30 ML SDV ONE (06:34)
[2018-01-18] MEDS ORDERED: OXYTOCIN/NORMAL SALINE 20 UNIT/1,000 ML RTUINJ ONE (06:34)
--- NOTE | 2018-01-18 13:30 | L&D Progress Notes ---
PROGRESS NOTES Datetime Report Generated by CPN: 01/18/2018 13:30 PROGRESS NOTE Impression: Reassuring Heart Rate Procedures: Artificial ROM; Sterile Vag Exam Plan: Continue Present Management Vital Signs : Reviewed; Within Normal Limits Comment: SVE w AROM clear fluid. Patient coping well. Anticipate stronger labor now. VAGINAL EXAM Dilatation: 3 Dilatation: 2 Effacement: 80 Effacement: 60 Station: -1 Station: -2 MEMBRANES Pooling: Negative Membranes: Ruptured Membranes: Intact Amniotic Fluid Color: Clear FETUS A FHR - Baseline: 130 Monitoring: External US Variability: Moderate 6-25bpm Accelerations: 15X15 FHR Category: Category I : 37.2 : 37.1 Estimated Weight (gm): 3400 Presentation: Vertex SIGNATURE SIGNATURE: ,[id number];,[id number];,[id number] SIGNATURE: ,[id number];,[id number] SIGNATURE: [id number] Assignment: Radha Mcdonough MD Signature: with User ID: [email or web address] : with User ID: [email or web address] : I personally evaluated and examined the patient in conjunction with the MLP and agree with the assessment, treatment plan and disposition.
[2018-01-18] MEDS ORDERED: GLYCERIN/WITCH HAZEL LEAF 1 EACH MED..PAD TP PRN (14:50)
[2018-01-18] MEDS ORDERED: MAGNESIUM HYDROXIDE SUSP 30 ML UDCUP PO PRN (14:50)
[2018-01-18] MEDS ORDERED: PROMETHAZINE HCL 25 MG SUPP.RECT PR PRN (14:50)
[2018-01-18] MEDS ORDERED: ACETAMINOPHEN 650 MG SUPP.RECT PR PRN (14:50)
[2018-01-18] MEDS ORDERED: ZOLPIDEM TARTRATE 5 MG TABLET PO PRN (14:50)
[2018-01-18] MEDS ORDERED: DIPH/PERTUSS(ACELL)/TETANUS VAC/PF 0.5 ML SYR (>=10YO) IM PRN (14:50)
[2018-01-18] MEDS ORDERED: DIBUCAINE 1% OINTMENT 28 GM TP PRN (14:50)
[2018-01-18] MEDS ORDERED: PROMETHAZINE HCL INJ 25 MG/1 ML VIAL IV PRN (14:50)
[2018-01-18] MEDS ORDERED: BENZOCAINE/MENTHOL AEROSOL SPRAY 56 ML TOP PRN (14:50)
[2018-01-18] MEDS ORDERED: DIPHENHYDRAMINE HCL 25 MG CAPSULE PO PRN (14:50)
[2018-01-18] MEDS ORDERED: MEASLES,MUMPS&RUBELLA VACC/PF 0.5 ML VIAL SUBCUT PRN (14:50)
[2018-01-18] MEDS ORDERED: NA PHOS,M-B/NA PHOS,DI-BA (ADULT) 133 ML ENEMA PR PRN (14:50)
[2018-01-18] MEDS ORDERED: ACETAMINOPHEN WITH CODEINE #3 TABLET PO PRN ×2 (14:50)
[2018-01-18] MEDS ORDERED: PROMETHAZINE HCL 25 MG TABLET PO PRN (14:50)
[2018-01-18] MEDS ORDERED: OXYTOCIN/NORMAL SALINE 20 UNIT/1,000 ML RTUINJ IV PRN (14:50)
[2018-01-18] MEDS ORDERED: PSEUDOEPHEDRINE HCL 30 MG TABLET PO PRN (14:50)
--- NOTE | 2018-01-18 16:53 | Delivery Summary ---
Del Sum A-C Datetime Report Generated by CPN: 01/18/2018 16:53 DELIVERY PERSONNEL DELIVERY PERSONNEL: [id number] Delivery Doctor:: Tania Hare CNM Labor and Delivery Nurse:: Lissette CASTRO RNmanager research and development Nurse:: Marcy Keyes RN Nursery Nurse:: OBIE CHAUDHARI [place]eller/PHYSICAL THERAPY AID: Jayne Smart CNA II MATERNAL INFORMATION Delivery Anesthesia: None Medications After Delivery: Pitocin Bolus-Please Comment; Pitocin Drip 20 Units/1000ml NSS Estimated Blood Loss (ml): 175 Maternal Complications: None Provider Comments: Called to room 6-vertex delivered. Patient in good control. FRED position. Nuchal cord x1-reduced. Compound right hand-reduced. Shoulders and body delivered without difficulty at 1418. 3 vessel cord. Apgars 9-9. Spontaneous respirations and cry. Cord clamped x2, after 2 min delay, then cut by FOB. Placenta delivered at 1424, Sun, appears intact. Perineum intact. Hemostasis achieved. Patient tolerated procedure well. LABOR SUMMARY EDC: 02/06/2018 00:00 No. Babies in Womb: 1 Attempted: No Labor Anesthesia: None LABOR INFORMATION Reason for Induction: Chronic Primary/Essential HTN; Gestational Hypertension; Pre-Eclampsia; Maternal Diabetes Onset of Labor: 01/18/2018 13:23 Complete Dilatation: 01/18/2018 14:17 Oxytocin: Induction Group B Beta Strep: POSITIVE Antibiotics # of Doses: 4 Antibiotics Time of Last Dose: 1251 Name of Antibiotic Given: Pennicillin Steroids Given: None Reason Steroids Not Administered: Not Applicable MEMBRANES Membranes Rupture Method: Artificial Rupture of Membranes: 01/18/2018 13:23 Length of Rupture (hr): 0.92 Amniotic Fluid Color: Clear Amniotic Fluid Amount: Moderate Amniotic Fluid Odor: Normal STAGES OF LABOR Stage 1 hr: 0 Stage 1 min: 54 Stage 2 hr: 0 Stage 2 min: 1 Stage 3 hr: 0 Stage 3 min: 6 Total Time in Labor hr: 1 Total Time in Labor min: 1 VAGINAL DELIVERY Episiotomy: None Laceration #1: None Laceration Extension #1: N/A Laceration Repair: Not Applicable Sponge Count Correct: N/A Sharps Count Correct: Yes CSECTION DELIVERY Primary Indication: N/A Secondary Indication: N/A CSection Incidence: N/A Labor: N/A CSection Incision: N/A BABY A INFORMATION Delivery Date/Time: 01/18/2018 14:18 Method of Delivery: Vaginal Born in Route : No : N/A Forceps: N/A Vacuum Extraction: N/A Shoulder Dystocia : No PRESENTATION/POSITION BABY A Presentation: Cephalic Cephalic Presentation: Vertex Vertex Position: LEFT Occipital Anterior WITH LT COMPOUND POSTERIOR HAND Breech Presentation: N/A PLACENTA INFORMATION BABY A Placenta Delivery Time : 01/18/2018 14:24 Placenta Method of Delivery: Spontaneous Placenta Status: Delivered SCORES BABY A Heart Rate 1 min: >100 bpm Resp Effort 1 min: Good Cry Reflex Irritability 1 min: Cough or Sneeze or Pulls Away Muscle Tone 1 min: Active Motion Color 1 min: Body [place], Extremities Blue Resuscitation Effort 1 min: Tactile Stimulation SCORE 1 MIN: 9 Heart Rate 5 min: >100 bpm Resp Effort 5 min: Good Cry Reflex Irritability 5 min: Cough or Sneeze or Pulls Away Muscle Tone 5 min: Active Motion Color 5 min: Body [place], Extremities Blue Resuscitation Effort 5 min: N/A SCORE 5 MIN: 9 INFANT INFORMATION BABY A Gestational Age at Delivery: 37.2 Gestational Status: Early Term- 37- 38.6 Weeks Infant Outcome : Liveborn Condition : Stable Infant Sex: Male IDENTIFICATION BABY A Verification Date/Time: 01/18/2018 14:38 ID Band Number: [id number] Mother's Name Verified: Yes Infant RN Verifying : BL MIKO, RN Additional Verifying Personnel: Patricia MARTINEZ, RN CORD INFORMATION BABY A No. Cord Vessels: 3 Nuchal Cord : Around Neck x1, Loose Nuchal Cord- Other: compound right hand Cord Blood Taken: Yes-For Storage (Mom's Blood type +) Suction: Mouth; Nose ASSESSMENT BABY A Skin to Skin: Yes BABY B INFORMATION : N/A SIGNATURES Assignment: Radha Mcdonough MD Signature: with User ID: [email or web address] : with User ID: [email or web address] : Ariel personally evaluated and examined the patient in conjunction with the P and agree with the assessment, treatment plan and disposition.
[2018-01-18 17:24] LABS: CHLAM PCR NOT DETECTED (NOT DETECT); GON PCR NOT DETECTED (NOT DETECT)
[2018-01-18] MEDS: DOCUSATE SODIUM 100 MG CAPSULE PO SCH (18:42)
[2018-01-18] MEDS: FERROUS SULFATE 325 MG TABLET PO SCH (18:42)
[2018-01-18] MEDS: FAMOTIDINE 20 MG TABLET PO SCH (22:01)
[2018-01-18] MEDS: IBUPROFEN 800 MG TABLET PO SCH (22:01)
[2018-01-19] MEDS: PENICILLIN G POTASSIUM 2,500,000 UNIT in DEXTROSE 5%-WATER 50 ML IV SCH ×2 (03:14→06:56)
[2018-01-19] MEDS: IBUPROFEN 800 MG TABLET PO SCH ×3 (05:48→22:04)
[2018-01-19 07:56] LABS: HEMOGLOBIN 8.9 g/dL (12.0-15.5); MEAN CORPUSCULAR HEMOGLOBIN 27.1 pg (27.0-33.4); MEAN CORPUSCULAR HGB CONC 34.2 g/dL (32.0-36.0); MEAN CORPUSCULAR VOLUME 79 fl (80-97); PLATELET COUNT 159 10^3/uL (150-450); RED BLOOD COUNT 3.28 10^6/uL (3.72-5.28); WHITE BLOOD COUNT 9.3 10^3/uL (4.0-10.5)
--- NOTE | 2018-01-19 09:58 | PDOC PROGRESS REPORT ---
Subjective-OB Progress Note for:: 01/19/18 Subjective: tolerating diet, well, pain controlled with current meds, bleeding slowing Physical Exam (OB) Vital Signs: Temp Pulse Resp BP Pulse Ox 98.0 F 75 17 140/94 H 98 01/19/18 08:30 01/19/18 08:30 01/19/18 08:30 01/19/18 08:30 01/19/18 08:30 Intake & Output 01/18/18 01/19/18 01/20/18 06:59 06:59 06:59 Weight 89 kg - Abdomen Description: Soft, Round Hernia Present: No Fundal Description: Firm, Midline Fundal Height: u/u - u/2 - Abdominal Tenderness: Nontender - Extremities Lower extremities: Mala's sign - neg Calf: Normal, Nontender Objective-Diagnostic Laboratory: 01/19/18 07:05 01/17/18 18:52 01/19/18 07:05 WBC 9.3 RBC 3.28 L Hgb 8.9 L Hct 26.0 L MCV 79 L MCH 27.1 MCHC 34.2 RDW 14.0 Plt Count 159 Assessment and Plan(PN) - Assessment and Plan (1) Carrier of group B Streptococcus Is this a current diagnosis for this admission?: Yes (2) Normal vaginal delivery Is this a current diagnosis for this admission?: Yes - Time Spent with Patient Time with patient: Less than 15 minutes Medications reviewed and adjusted accordingly: Yes - Disposition Anticipated Discharge: Home Within: within 24 hours
[2018-01-19] MEDS: PRENATAL VITAMIN W DHA CAPSULE PO SCH (10:11)
[2018-01-19] MEDS: FAMOTIDINE 20 MG TABLET PO SCH ×2 (10:12→22:06)
[2018-01-19] MEDS: FERROUS SULFATE 325 MG TABLET PO SCH ×2 (10:12→18:01)
[2018-01-19] MEDS: DOCUSATE SODIUM 100 MG CAPSULE PO SCH ×2 (10:13→18:00)
[2018-01-19] MEDS: SENNOSIDES/DOCUSATE 8.6-50 MG 1 EACH TABLET PO SCH (10:14)
[2018-01-20] MEDS: IBUPROFEN 800 MG TABLET PO SCH ×2 (05:02→13:20)
[2018-01-20] MEDS: FAMOTIDINE 20 MG TABLET PO SCH (09:03)
[2018-01-20] MEDS: FERROUS SULFATE 325 MG TABLET PO SCH (09:03)
[2018-01-20] MEDS: SENNOSIDES/DOCUSATE 8.6-50 MG 1 EACH TABLET PO SCH (09:03)
[2018-01-20] MEDS: PRENATAL VITAMIN W DHA CAPSULE PO SCH (09:03)
[2018-01-20] MEDS: DOCUSATE SODIUM 100 MG CAPSULE PO SCH (09:03)
--- NOTE | 2018-01-20 10:35 | PDOC DISCHARGE SUMMARY ---
Final Diagnosis Discharge Date: 01/20/18 - Final Diagnosis (1) Normal vaginal delivery Is this a current diagnosis for this admission?: Yes (2) History of sciatica Is this a current diagnosis for this admission?: Yes Discharge Data - Discharge Medication Home Medications: Metformin HCl [Metformin HCl ER] 500 mg PO DAILY 01/18/18 Reason(s) for Admission: Induction of Labor Procedures: NST, Ultrasound Intrapartum Procedure(s): Spontaneous Vaginal Delivery - Diagnosis Test Laboratory: Temp Pulse Resp BP Pulse Ox 98.2 F 84 10 L 140/94 H 98 01/20/18 07:53 01/20/18 07:53 01/20/18 07:53 01/20/18 07:53 01/20/18 07:53 01/17/18 01/17/18 01/19/18 18:41 18:52 07:05 RBC 3.47 L 3.28 L Hgb 9.3 L 8.9 L Hct 27.7 L 26.0 L Urine Opiates Screen NEGATIVE - Discharge information/Instructions Discharge Activity: Activity As Tolerated Discharge Diet: Regular Disposition: HOME, SELF-CARE Follow up with: [facility] in: 1
[2018-01-20 12:03] VITALS: BP 140/94
== END 2018-01-20 13:23 | disposition home or self-care (01) | DRG 775 ==
LOC: LR 18:27 → 2S 01-18 17:15
PROVIDERS: ADMIT Obstetrics & Gynecology; ATTEND Obstetrics & Gynecology
PROC: 10E0XZZ Delivery of Products of Conception, External Approach (ICD-10-PCS; principal; 2018-01-18)
DX: O13.4 Gestational [pregnancy-induced] hypertension without significant proteinuria, complicating childbirth (principal); O24.425 Gestational diabetes mellitus in childbirth, controlled by oral hypoglycemic drugs; O69.81X0 Labor and delivery complicated by cord around neck, without compression, not applicable or unspecified; O32.2XX0 Maternal care for transverse and oblique lie, not applicable or unspecified; O99.824 Streptococcus B carrier state complicating childbirth; O14.94 Unspecified pre-eclampsia, complicating childbirth; Z3A.37 37 weeks gestation of pregnancy; Z37.0 Single live birth
CPT/HCPCS: 36415; 80053; 80307; 81005; 82962; 83615; 84550; 85025; 85027; 86592; 86850; 86900; 86901; 87491; 87591; 88307; 94760; J2540; J2590; J3490

== ENCOUNTER 2019-03-21 11:32 | Emergency (ER) | payer SELFPAY ==
--- NOTE | 2019-03-21 11:58 | ER Document Report ---
ED Medical Screen (RME) - General Chief Complaint: Loose Stools Stated Complaint: DIAHERRA/ABDOMINAL PAIN Time Seen by Provider: 03/21/19 11:48 Primary Care Provider: PILLO STOUT MD [Primary Care Provider] - Follow up as needed Mode of Arrival: Ambulatory Information source: Patient Notes: 28-year-old female presents today with complaints of abdominal discomfort and diarrhea for the past 2 weeks. She reports she will eat something or not and will have diarrhea 2-3 times a day. Denies recent antibiotic use. Denies recent trip. Denies history of IBS or diverticulitis. Reports no other family member ill. Reports grandfather with history of colon cancer. Patient reports she noted blood in her stool on her stool and when she wiped today. I have greeted and performed a rapid initial assessment of this patient. A comprehensive ED assessment and evaluation of the patient, analysis of test results and completion of the medical decision making process will be conducted by additional ED providers. Dictation of this chart was performed using voice recognition software; therefore, there may be some unintended grammatical errors. TRAVEL OUTSIDE OF THE [place] IN LAST 30 DAYS: No - Related Data Allergies/Adverse Reactions: No Known Allergies Allergy (Verified 03/21/19 11:34) Past Medical History - Past Medical History Cardiac Medical History: Reports: Hx Hypertension Renal/ Medical History: Denies: Hx Peritoneal Dialysis - Immunizations Immunizations up to date: Yes Hx Diphtheria, Pertussis, Tetanus Vaccination: Yes Physical Exam - Vital signs Vitals: Temp Pulse Resp BP Pulse Ox 98.6 F 99 18 151/98 H 99 03/21/19 11:41 03/21/19 11:41 03/21/19 11:41 03/21/19 11:41 03/21/19 11:41 Course - Vital Signs Vital signs: Temp Pulse Resp BP Pulse Ox 98.6 F 99 18 151/98 H 99 03/21/19 11:41 03/21/19 11:41 03/21/19 11:41 03/21/19 11:41 03/21/19 11:41 Doctor's Discharge - Discharge Referrals: PILLO STOUT MD [Primary Care Provider] - Follow up as needed
[2019-03-21 12:36] LABS: ABSOLUTE EOSINOPHILS # (AUTO) 0.3 10^3/uL (0.0-0.6); ABSOLUTE LYMPHOCYTES (AUTO) 1.7 10^3/uL (0.5-4.7); ABSOLUTE MONOCYTES (AUTO) 0.5 10^3/uL (0.1-1.4); ABSOLUTE NEUT (AUTO) 2.6 10^3/uL (1.7-8.2); BASOPHILS % (AUTO) 0.3 % (0-2); EOSINOPHILS % (AUTO) 5.5 % (0-6); HEMATOCRIT 38.6 % (36.0-47.0); HEMOGLOBIN 13.3 g/dL (12.0-15.5); MEAN CORPUSCULAR HEMOGLOBIN 28.2 pg (27.0-33.4); MEAN CORPUSCULAR HGB CONC 34.6 g/dL (32.0-36.0); MEAN CORPUSCULAR VOLUME 82 fl (80-97); MONOCYTES % (AUTO) 9.1 % (3-13); PLATELET COUNT 281 10^3/uL (150-450); RED BLOOD COUNT 4.73 10^6/uL (3.72-5.28); RED CELL DISTRIBUTION WIDTH 12.4 % (11.5-14.0); SEGMENTED NEUTROPHILS % (AUTO) 51.1 % (42-78); TOTAL CELLS COUNTED % (AUTO) 100 %; WHITE BLOOD COUNT 5.1 10^3/uL (4.0-10.5)
[2019-03-21 12:43] LABS: APPEARANCE,URINE CLEAR; BILIRUBIN,URINE NEGATIVE (NEGATIVE); COLOR,URINE YELLOW; GLUCOSE, URINE NEGATIVE (NEGATIVE); KETONES,URINE NEGATIVE (NEGATIVE); LEUKOCYTE ESTERASE,URINE NEGATIVE (NEGATIVE); NITRITE,URINE NEGATIVE (NEGATIVE); PROTEIN,URINE NEGATIVE (NEGATIVE); URINE SPECIFIC GRAVITY 1.029; UROBILINOGEN,URINE NEGATIVE mg/dL (<2.0)
[2019-03-21 12:50] LABS: ALBUMIN 4.8 g/dL (3.5-5.0); ALKALINE PHOSPHATASE 20 U/L (38-126); ANION GAP 11 (5-19); ASPARTATE AMINO TRANSFERASE 26 U/L (14-36); BILIRUBIN,DIRECT 0.1 mg/dL (0.0-0.4); BILIRUBIN,TOTAL 0.7 mg/dL (0.2-1.3); BLOOD UREA NITROGEN 13 mg/dL (7-20); CALCIUM 9.7 mg/dL (8.4-10.2); CARBON DIOXIDE 28 mmol/L (22-30); CHLORIDE 100 mmol/L (98-107); GLUCOSE 112 mg/dL (75-110); POTASSIUM 3.9 mmol/L (3.6-5.0); TOTAL PROTEIN 7.7 g/dL (6.3-8.2)
[2019-03-21] MEDS ORDERED: NORMAL SALINE 1000 ML 1,000 ML IV ONE (13:53)
--- NOTE | 2019-03-21 14:37 | RADIOLOGY REPORT (SQ) ---
EXAM DESCRIPTION: CT ABD/PELVIS NO ORAL OR IV COMPLETED DATE/TIME: 03/21/2019 2:27 pm REASON FOR STUDY: ABD PAIN COMPARISON: None. TECHNIQUE: CT scan of the abdomen and pelvis performed without intravenous or oral contrast. Images reviewed with lung, soft tissue, and bone windows. Reconstructed coronal and sagittal MPR images revi ewed. All images stored on PACS. All CT scanners at this facility use dose modulation, iterative reconstruction, and/or weight based d osing when appropriate to reduce radiation dose to as low as reasonably achievable (ALARA). [facility]: Dose Right [facility]: CareDose [facility]: Dose Right [facility]: Teradose 4D [facility]: InEdge RADIATION DOSE: mGy. LIMITATIONS: None. FINDINGS: LOWER CHEST: No significant findings. No nodules or infiltrates. NON-CONTRASTED LIVER, SPLEEN, ADRENALS: Evaluation limited by lack of IV contrast. No identified sign ificant masses. PANCREAS: No masses. No peripancreatic inflammatory changes. GALLBLADDER: No identified stones by CT criteria. No inflammatory changes to suggest cholecystitis. RIGHT KIDNEY AND URETER: No suspicious masses. Assessment limited by lack of IV contrast. No signif icant calcifications. No hydronephrosis or hydroureter. LEFT KIDNEY AND URETER: No suspicious masses. Assessment limited by lack of IV contrast. No signifi cant calcifications. No hydronephrosis or hydroureter. AORTA AND RETROPERITONEUM: No aneurysm. No retroperitoneal masses or adenopathy. BOWEL AND PERITONEAL CAVITY: No obvious masses or inflammatory changes. No free fluid. Large amount of stool throughout the colon consistent with constipation. APPENDIX: Normal. PELVIS, BLADDER, AND ABDOMINAL WALL:Small umbilical hernia containing omental fat only. Numerous phl eboliths in the pelvis. BONES: No significant findings. OTHER: No other significant finding. IMPRESSION: Constipation. No other significant findings in the abdomen or pelvis. COMMENT: Quality ID # [id number]: Final reports with documentation of one or more dose reduction techniques (e.g., Automated exposure control, adjustment of the mA and/or kV according to patient size, use of iterative reconstruction technique) TECHNICAL DOCUMENTATION: JOB ID: [id number] [employer]- All Rights Reserved Reading location - IP/workstation name: [email or web address]
--- NOTE | 2019-03-21 15:20 | ER Document Report ---
ED GI/ - General Chief Complaint: Loose Stools Stated Complaint: DIAHERRA/ABDOMINAL PAIN Time Seen by Provider: 03/21/19 11:48 Primary Care Provider: PILLO STOUT MD [ACTIVE STAFF] - Follow up as needed Mode of Arrival: Ambulatory Notes: 28-year-old female presents today with complaints of abdominal discomfort and diarrhea for the past 2 weeks. She reports she will eat something or not and will have diarrhea 2-3 times a day. Denies recent antibiotic use. Denies recent trip. Denies history of IBS or diverticulitis. Reports no other family member ill. Reports grandfather with history of colon cancer. Patient reports she noted blood in her stool on her stool and when she wiped today. TRAVEL OUTSIDE OF THE [place] IN LAST 30 DAYS: No - Related Data Allergies/Adverse Reactions: No Known Allergies Allergy (Verified 03/21/19 11:34) Past Medical History - General Information source: Patient - Social History Smoking Status: Never Smoker Frequency of alcohol use: None Drug Abuse: None Family History: CAD, Hypertension Patient has suicidal ideation: No Patient has homicidal ideation: No - Past Medical History Cardiac Medical History: Reports: Hx Hypertension Renal/ Medical History: Denies: Hx Peritoneal Dialysis - Immunizations Immunizations up to date: Yes Hx Diphtheria, Pertussis, Tetanus Vaccination: Yes Review of Systems - Review of Systems Constitutional: Chills. denies: Fever EENT: denies: Throat pain Cardiovascular: denies: Chest pain Respiratory: denies: Cough, Short of breath Gastrointestinal: Abdominal pain, Diarrhea, Nausea, Vomiting Genitourinary: denies: Dysuria, Flank pain, Hematuria Neurological/Psychological: denies: Headaches -: Yes All other systems reviewed and negative Physical Exam - Vital signs Vitals: Temp Pulse Resp BP Pulse Ox 98.6 F 99 18 151/98 H 99 03/21/19 11:41 03/21/19 11:41 03/21/19 11:41 03/21/19 11:41 03/21/19 11:41 - Notes Notes: GENERAL_APPEARANCE: well_nourished, alert, cooperative, no_acute_distress, no_obvious_discomfort. VITALS: reviewed, see vital signs table. HEAD: no_swelling\tenderness on the head. EYES: PERRL, EOMI, conjunctiva_clear. NOSE: no_nasal_discharge. MOUTH: (-)decreased moisture. THROAT: no_tonsilar_inflammation, no_airway_obstruction. no_lymphadenopathy NECK: supple, no_neck_tenderness, (-)thyromegaly. BACK: no_back_tenderness. CHEST_WALL: no_chest_tenderness. LUNGS: no_wheezing, no_rales, no_rhonchi, (-)accessory muscle use, good air exchange bilateral. HEART: normal_rate, normal_rhythm, normal_S1, normal_S2, (-)S3, (-)S4, no_murmur, no_rub. ABDOMEN: normal_BS, soft, mild left lower quadrant_abd_tenderness, (-)guarding, (-)rebound, no_organomegaly, no_abd_masses. EXTREMITIES: good pulses in all_extremities, no_swelling\tenderness in the extremities, no_edema. SKIN: warm, dry, good_color, no_rash. MENTAL_STATUS: speech_clear, oriented_X_3, normal_affect, respond s_appropriately to questions. Course - Re-evaluation Re-evalutation: 03/21/19 15:19 28 female arrives with some abdominal discomfort nausea vomiting diarrhea. Patient had some specks of blood in her diarrhea. She states he gets worse every time she eats anything she has a bowel movement. She complains of some abdominal cramping and discomfort. States is a little bit of cold like symptoms but nothing significant her family has been ill with similar. Checking labs urine and we will get a CT. 03/21/19 15:52 CT is normal. Labs are all within acceptable limits the patient does have blood in her stool with many WBCs she likely has Salmonella or so the other enteric pathogen. We will place her on antibiotics for several days. - Vital Signs Vital signs: Temp Pulse Resp BP Pulse Ox 98.6 F 99 18 151/98 H 99 03/21/19 11:41 03/21/19 11:41 03/21/19 11:41 03/21/19 11:41 03/21/19 11:41 - Laboratory Result Diagrams: 03/21/19 12:00 03/21/19 12:00 Laboratory results interpreted by me: 03/21/19 03/21/19 12:00 12:00 Glucose 112 H Alkaline Phosphatase 20 L Stool for White Cells MANY H - Diagnostic Test Radiology reviewed: Reports reviewed Radiology results interpreted by me: 03/21/19 15:19 Abdomen/Pelvis CT 03/21/19 13:53 IMPRESSION: Constipation. No other significant findings in the abdomen or pelvis. Discharge - Discharge Clinical Impression: Diarrhea Qualifiers: Diarrhea type: infectious Qualified Code(s): A09 - Infectious gastroenteritis and colitis, unspecified Abdominal pain Qualifiers: Abdominal location: unspecified location Qualified Code(s): R10.9 - Unspecified abdominal pain Condition: Good Disposition: HOME, SELF-CARE Instructions: Abdominal Pain ([facility]), Diarrhea, Nonspecific ([facility]) Prescriptions: Ciprofloxacin HCl [Cipro 500 mg Tablet] 500 mg PO BID #10 tablet Metronidazole [Flagyl 500 mg Tablet] 500 mg PO TID #15 tablet Referrals: PILLO STOUT MD [ACTIVE STAFF] - Follow up as needed
[2019-03-21 16:04] VITALS: BP 128/82
== END 2019-03-21 16:04 | disposition home or self-care (01) ==
LOC: ER 11:32
DX: A09 Infectious gastroenteritis and colitis, unspecified (principal); K59.00 Constipation, unspecified; K92.1 Melena; R10.9 Unspecified abdominal pain; R10.814 Left lower quadrant abdominal tenderness; I10 Essential (primary) hypertension; Z80.0 Family history of malignant neoplasm of digestive organs
CPT/HCPCS: 36415; 87045; 89055; 87205; 83690; 85025; 82272; 81025; 80053; 81001; 74176; J7030; 96360; 99284

== ENCOUNTER 2019-10-16 18:24 | Emergency (ER) | payer SELFPAY ==
--- NOTE | 2019-10-16 18:46 | ER Document Report ---
ED Medical Screen (RME) - General Chief Complaint: Leg Pain Stated Complaint: LEFT LEG PAIN Time Seen by Provider: 10/16/19 18:43 Notes: HPI: 28-year-old female presenting to the emergency department complaining of pain to the inner aspect of the left thigh, inguinal region with radiation around the left thigh and hip region, states it hurts to walk or move. No specific trauma started as a minor discomfort that progressively worsened over time. Patient feels like there is swelling along the left inner leg and thigh region. Denies calf pain denies chest pain denies shortness of breath. No history of clotting disorders. Not on blood thinners I have greeted and performed a rapid initial assessment of this patient. A comprehensive ED assessment and evaluation of the patient, analysis of test results and completion of the medical decision making process will be conducted by additional ED providers PHYSICAL EXAMINATION: Examination is limited in triage, patient likely needs to disrobe for further evaluation. There is tenderness to the inner aspect of the left thigh into the left inguinal region. There is pain with range of motion of the left leg at the hip I have greeted and performed a rapid initial assessment of this patient. A comprehensive ED assessment and evaluation of the patient, analysis of test results and completion of medical decision making process will be conducted by an additional ED providers. TRAVEL OUTSIDE OF THE [place] IN LAST 30 DAYS: No - Related Data Allergies/Adverse Reactions: No Known Allergies Allergy (Verified 10/16/19 18:30) Home Medications: Denies Past Medical History - Social History Chew tobacco use (# tins/day): No Frequency of alcohol use: None Drug Abuse: None - Past Medical History Cardiac Medical History: Reports: Hx Hypertension Renal/ Medical History: Denies: Hx Peritoneal Dialysis - Immunizations Immunizations up to date: Yes Hx Diphtheria, Pertussis, Tetanus Vaccination: Yes Physical Exam - Vital signs Vitals: Temp Pulse Resp BP Pulse Ox 99.1 F 103 H 16 150/98 H 98 10/16/19 18:27 10/16/19 18:27 10/16/19 18:27 10/16/19 18:27 10/16/19 18:27 Course - Vital Signs Vital signs: Temp Pulse Resp BP Pulse Ox 99.1 F 103 H 16 150/98 H 98 10/16/19 18:27 10/16/19 18:27 10/16/19 18:27 10/16/19 18:27 10/16/19 18:27
[2019-10-16 19:13] LABS: INTERNATIONAL RATION (INR) 1.03; PROTHROMBIN TIME 13.5 SEC (11.4-15.4)
[2019-10-16 19:14] LABS: ABSOLUTE EOSINOPHILS # (AUTO) 0.3 10^3/uL (0.0-0.6); ABSOLUTE LYMPHOCYTES (AUTO) 1.9 10^3/uL (0.5-4.7); ABSOLUTE MONOCYTES (AUTO) 0.5 10^3/uL (0.1-1.4); ABSOLUTE NEUT (AUTO) 3.4 10^3/uL (1.7-8.2); BASOPHILS % (AUTO) 0.4 % (0-2); EOSINOPHILS % (AUTO) 4.3 % (0-6); HEMOGLOBIN 12.5 g/dL (12.0-15.5); LYMPHOCYTES % (AUTO) 31.3 % (13-45); MEAN CORPUSCULAR HEMOGLOBIN 29.2 pg (27.0-33.4); MEAN CORPUSCULAR HGB CONC 35.7 g/dL (32.0-36.0); MEAN CORPUSCULAR VOLUME 82 fl (80-97); MONOCYTES % (AUTO) 8.4 % (3-13); PLATELET COUNT 296 10^3/uL (150-450); RED BLOOD COUNT 4.28 10^6/uL (3.72-5.28); RED CELL DISTRIBUTION WIDTH 12.3 % (11.5-14.0); SEGMENTED NEUTROPHILS % (AUTO) 55.6 % (42-78); TOTAL CELLS COUNTED % (AUTO) 100 %
--- NOTE | 2019-10-16 19:20 | RADIOLOGY REPORT (SQ) ---
EXAM DESCRIPTION: HIP LEFT AP/LATERAL IMAGES COMPLETED DATE/TIME: 10/16/2019 6:04 pm REASON FOR STUDY: pain COMPARISON: None. NUMBER OF VIEWS: Two views. TECHNIQUE: AP pelvis and additional frog-leg view of the left hip. LIMITATIONS: None. FINDINGS: MINERALIZATION: Normal. LEFT HIP: No fracture or dislocation. No worrisome bone lesions. RIGHT HIP: No fracture or dislocation. No worrisome bone lesions. PUBIS AND ISCHIUM: No fracture. PELVIS: No fracture. SACRUM: No fracture or dislocation. No worrisome bone lesions. LOWER LUMBAR SPINE: No fracture or dislocation. No worrisome bone lesions. No significant disc disea se. SOFT TISSUES: No findings. OTHER: No other significant finding. IMPRESSION: NEGATIVE STUDY OF THE LEFT HIP AND PELVIS. NO RADIOGRAPHIC EVIDENCE OF ACUTE INJURY. TECHNICAL DOCUMENTATION: JOB ID: [id number] 2010 [employer]- All Rights Reserved Reading location - IP/workstation name: [email or web address]
[2019-10-16 19:35] LABS: ALBUMIN 4.4 g/dL (3.5-5.0); ALKALINE PHOSPHATASE 23 U/L (38-126); ANION GAP 6 (5-19); ASPARTATE AMINO TRANSFERASE 28 U/L (14-36); BILIRUBIN,TOTAL 0.3 mg/dL (0.2-1.3); BLOOD UREA NITROGEN 13 mg/dL (7-20); CALCIUM 9.3 mg/dL (8.4-10.2); CARBON DIOXIDE 30 mmol/L (22-30); CHLORIDE 102 mmol/L (98-107); GLUCOSE 96 mg/dL (75-110); TOTAL PROTEIN 7.5 g/dL (6.3-8.2)
--- NOTE | 2019-10-16 20:36 | RADIOLOGY REPORT (SQ) ---
EXAM DESCRIPTION: Left lower extremity venous duplex CLINICAL HISTORY: 28 years Female; left upper inner thigh pain TECHNIQUE: Multiple grayscale sonographic images of the leg were obtained utilizing a high-frequency linear array transducer supplemented with color Doppler, compression and augmentation techniques. COMPARISON: Left lower extremity venous duplex exam 02/27/2014 FINDINGS: Left leg veins: Normal compression and augmentation is identified from the level of the common femoral vein to the calf veins. Normal color flow and spectral waveforms. No edema. No popliteal cyst The right common femoral vein demonstrates normal color flow and is compressible. The rest of the right lower extremity was not imaged. IMPRESSION: No sonographic evidence for lower extremity deep venous thrombosis.
[2019-10-16] MEDS ORDERED: NAPROXEN 250 MG TABLET PO ONE (21:03)
--- NOTE | 2019-10-16 21:10 | ER Document Report ---
ED General - General Chief Complaint: Leg Pain Stated Complaint: LEFT LEG PAIN Time Seen by Provider: 10/16/19 18:43 Primary Care Provider: BRENDA KELLEY JR, DO [ACTIVE PROVISIONAL STAFF] - Follow up as needed KIKI DASH DO [ACTIVE STAFF] - Follow up as needed Mode of Arrival: Ambulatory Information source: Patient TRAVEL OUTSIDE OF THE [place] IN LAST 30 DAYS: No - HPI Onset: Other - 8 days ago Onset/Duration: Gradual Quality of pain: Cramping, Throbbing Severity: Moderate Pain Level: 3 Associated symptoms: None Exacerbated by: Other - movement of her left leg Relieved by: Remaining still Similar symptoms previously: No Recently seen / treated by doctor: No Notes: 28 year old female with no significant PMH here in the ER for 8 days of left upper leg/thigh pain. The patient says the pain started about 8 days ago and it worsened 7 days ago after playing baseball. The patient denies known direct trauma to her left leg. The patient denies skin redness, bruising, warmth in the area of her left leg that hurts. The patient felt that there was some mild swelling in her left thigh at one point but she doesnt appreciate that now. The patient says movement of her left leg makes the pain worse (specifically external rotation). The patient denies urinary symptoms, vaginal symptoms, fevers, chills, sweats, recent illness. - Related Data Allergies/Adverse Reactions: No Known Allergies Allergy (Verified 10/16/19 18:30) Home Medications: Denies Past Medical History - General Information source: Patient - Social History Smoking Status: Never Smoker Chew tobacco use (# tins/day): No Frequency of alcohol use: None Drug Abuse: None Family History: CAD, Hypertension Patient has suicidal ideation: No Patient has homicidal ideation: No - Past Medical History Cardiac Medical History: Reports: Hx Hypertension Renal/ Medical History: Denies: Hx Peritoneal Dialysis - Immunizations Immunizations up to date: Yes Hx Diphtheria, Pertussis, Tetanus Vaccination: Yes Review of Systems - Review of Systems Constitutional: No symptoms reported EENT: No symptoms reported Cardiovascular: No symptoms reported Respiratory: No symptoms reported Gastrointestinal: No symptoms reported Genitourinary: No symptoms reported Female Genitourinary: No symptoms reported Musculoskeletal: Other - left upper leg/thigh pain Skin: No symptoms reported Hematologic/Lymphatic: No symptoms reported Neurological/Psychological: No symptoms reported -: Yes All other systems reviewed and negative Physical Exam - Vital signs Vitals: Temp Pulse Resp BP Pulse Ox 99.1 F 103 H 16 150/98 H 98 10/16/19 18:27 10/16/19 18:27 10/16/19 18:10/16/19 18:10/16/19 18: - Notes Notes: GENERAL: Well-appearing, well-nourished and in no acute distress. HEAD: Atraumatic, normocephalic. EYES: Pupils equal round and reactive to light, extraocular movements intact, sclera anicteric, conjunctiva are normal. ENT: Nares patent, oropharynx clear without exudates. Moist mucous membranes. NECK: Normal range of motion, supple without lymphadenopathy or JVD. LUNGS: Breath sounds clear to auscultation bilaterally and equal. No wheezes rales or rhonchi. HEART: Regular rate and rhythm without murmurs, rubs or gallops. ABDOMEN: Soft, nontender, normoactive bowel sounds. No guarding, no rebound. No masses appreciated. EXTREMITIES: 2+ DP and PT pulses in left foot. No palpable lymph nodes. No appreciable swelling, warmth, erythema of left leg. Normal range of motion, no pitting or edema. No clubbing or cyanosis. NEUROLOGICAL: Cranial nerves II through XII grossly intact. Normal speech, normal gait. PSYCH: Normal mood, normal affect. SKIN: Warm, Dry, normal turgor, no rashes or lesions noted. Course - Re-evaluation Re-evalutation: 10/16/19 21:50 The patient is here for left upper leg/thigh pain for the last 8 days. The patient had an Xray of her left hip as well as an ultrasound of her left lower leg ordered in Triage. Both radiology studies were unremarkable. The patient also had lab work ordered in triage which was unremarkable. Patient told to follow up with her PCP or Orthopedics if her left leg/thigh pain persisted in the next 2 weeks. Will prescribe patient Naproxen and Flexeril as she says the muscle spasms in her leg hurt the most. - Vital Signs Vital signs: Temp Pulse Resp BP Pulse Ox 99.1 F 103 H 16 150/98 H 98 10/16/19 18:27 10/16/19 18:27 10/16/19 18:27 10/16/19 18:27 10/16/19 18:27 - Laboratory Result Diagrams: 10/16/19 18:50 10/16/19 18:50 Laboratory results interpreted by me: 10/16/19 10/16/19 18:50 18:50 Hct 35.0 L Alkaline Phosphatase 23 L - Diagnostic Test Radiology reviewed: Image reviewed, Reports reviewed Discharge - Discharge Clinical Impression: Leg pain, left Condition: Stable Disposition: HOME, SELF-CARE Instructions: Leg Pain Nonspecific ([facility]) Additional Instructions: Use the prescribed Naproxen for pain along with over the counter Tylenol and a hearting pad. Use the prescribed Flexeril for muscle spasms. Follow up in the Orthopedic Clinic if your left leg pain continues over the next 2 weeks. Tell the doctor you follow up with that you had an Xray of your hip and pelvis as well as a lower extremity ultrasound. Both of these image studies were within normal limits. Prescriptions: Cyclobenzaprine HCl [Flexeril 10 mg Tablet] 10 mg PO BID #10 tab Referrals: KIKI DASH DO [ACTIVE STAFF] - Follow up as needed BRENDA KELLEY JR, DO [ACTIVE PROVISIONAL STAFF] - Follow up as needed
[2019-10-16 22:09] VITALS: BP 132/96
== END 2019-10-16 22:00 | disposition home or self-care (01) ==
LOC: ER 18:24
DX: M79.605 Pain in left leg (principal); M79.652 Pain in left thigh; M79.89 Other specified soft tissue disorders; X58.XXXA Exposure to other specified factors, initial encounter; Y93.64 Activity, baseball; I10 Essential (primary) hypertension
CPT/HCPCS: 36415; 80053; 84703; 85025; 85610; 93971; 99284